=== PATIENT | male | born 1940 | race Asian ===

== ENCOUNTER 2025-01-25 07:51 | Inpatient (IN) | payer MEDICARE, OTHER ==
[~2025-01-25] VITALS: Ht 160 cm; Wt 54.4 kg
[2025-01-25 08:21] LABS: PLATELET COUNT (AUTO) 117 K/uL (152-348); RED BLOOD CELL COUNT(AUTO) 2.72 MIL/uL (4.06-5.63); RED CELL DISTRIBUTION WIDTH 15.3 % (12.1-16.2); WHITE BLOOD COUNT (AUTO) 4.7 K/uL (3.6-10.2)
[2025-01-25 08:31] LABS: CREATININE 0.6 mg/dL (0.6-1.3); SODIUM SERUM 147 mmol/L (136-145); UREA NITROGEN, BLOOD 21 mg/dL (7-18)
[2025-01-25 08:36] LABS: ASPARTATE AMINOTRANSFERASE 6 U/L (15-37); TOTAL PROTEIN, SERUM 6.9 g/dL (6.4-8.2)
[2025-01-25] MEDS ORDERED: IPRA0.2S48 NEB (08:38)
[2025-01-25] MEDS ORDERED: DOCU100T2 GT (08:38)
[2025-01-25] MEDS ORDERED: EPOE200012 SUBCUT (08:38)
[2025-01-25] MEDS ORDERED: FINA5TAB11 GT (08:38)
[2025-01-25] MEDS ORDERED: FAMO20TA8 GT (08:38)
[2025-01-25] MEDS ORDERED: ATOR20TA GT (08:38)
[2025-01-25] MEDS ORDERED: FERR220S6 GT (08:38)
[2025-01-25] MEDS ORDERED: CHOL500062 GT (08:38)
[2025-01-25] MEDS ORDERED: FOLI1TAB94 GT (08:38)
[2025-01-25] MEDS ORDERED: MAGN400O6 GT (08:38)
[2025-01-25] MEDS ORDERED: CARV3.122 GT (08:38)
[2025-01-25] MEDS ORDERED: DONE10TA44 GT (08:38)
[2025-01-25] MEDS ORDERED: ZINC56.713 TP (08:38)
[2025-01-25] MEDS ORDERED: ESCI10TA GT (08:38)
[2025-01-25] MEDS ORDERED: NA P133E RC (08:38)
[2025-01-25] MEDS ORDERED: SENN8.6T19 GT (08:38)
[2025-01-25] MEDS ORDERED: KETO15CR2 TP (08:38)
[2025-01-25] MEDS ORDERED: GABA100C GT (08:38)
[2025-01-25] MEDS ORDERED: POLY17PO4 GT (08:38)
[2025-01-25] MEDS ORDERED: BISA10SU61 RC (08:38)
[2025-01-25] MEDS ORDERED: [UNRECOGNIZED DRUG - SUPPLY] TP (08:38)
[2025-01-25] MEDS ORDERED: ACET-2030 GT (08:38)
[2025-01-25] MEDS ORDERED: ACET-3117 GT (08:38)
[2025-01-25] MEDS ORDERED: POVI37802 TP (08:40)
[2025-01-25] MEDS ORDERED: ALBU2.5V38 IH (08:40)
[2025-01-25] MEDS ORDERED: ONDANSETRON 4 MG/2 ML VIAL IV PRN (10:45)
[2025-01-25] MEDS ORDERED: ACETAMINOPHEN 325 MG TABLET PO PRN (10:45)
[2025-01-25] MEDS ORDERED: REMEDY ESSENTIAL ZINC PASTE 113 GM TP PRN (10:45)
[2025-01-25] MEDS: IV D5 1/2 NS 1000 ML 1,000 ML IV PRN (16:49)
[2025-01-25] MEDS ORDERED: ACET-73 GT (18:01)
[2025-01-25] MEDS ORDERED: POVI3780 TP (18:03)
[2025-01-25] MEDS ORDERED: TAMS-3 GT (18:07)
[2025-01-25 18:34] VITALS: BP 123/66; TEMP 98.6; O2SAT 100
[2025-01-25 19:50] VITALS: BP 128/55; TEMP 97.5; O2SAT 100
[2025-01-25] MEDS ORDERED: ETOMIDATE 20 MG/10 ML VIAL ONE (21:05)
[2025-01-25] MEDS ORDERED: LIDOCAINE-MPF 2% 5 ML VIAL ONE (21:05)
[2025-01-25 21:41] VITALS: BP 135/66
[2025-01-26 00:31] VITALS: O2SAT 97
[2025-01-26 06:38] LABS: PLATELET COUNT (AUTO) 112 K/uL (152-348); RED BLOOD CELL COUNT(AUTO) 2.76 MIL/uL (4.06-5.63); RED CELL DISTRIBUTION WIDTH 15.1 % (12.1-16.2); WHITE BLOOD COUNT (AUTO) 5.6 K/uL (3.6-10.2)
[2025-01-26 06:45] VITALS: BP 132/63; TEMP 97.7; O2SAT 100
[2025-01-26 06:52] LABS: CREATININE 0.4 mg/dL (0.6-1.3); SODIUM SERUM 146 mmol/L (136-145); UREA NITROGEN, BLOOD 18 mg/dL (7-18)
[2025-01-26] MEDS: POTASSIUM CHLORIDE 50 ML IV SCH (10:23)
[2025-01-26 10:56] VITALS: BP 128/59; TEMP 98.6; O2SAT 100
[2025-01-26] MEDS ORDERED: OSMOLITE 1.2 CAL 1,000 ML LIQUID GT SCH (13:45)
[2025-01-26] MEDS ORDERED: OSMOLITE 1.2 CAL 1,000 ML LIQUID GT PRN (13:46)
[2025-01-26] MEDS: OSMOLITE 1.2 CAL 1,000 ML LIQUID GT PRN (13:50)
[2025-01-26 15:02] VITALS: BP 129/65; TEMP 98.1; O2SAT 100
[2025-01-26 19:25] VITALS: BP 141/62; TEMP 97.8; O2SAT 100
[2025-01-27 06:44] LABS: PLATELET COUNT (AUTO) 94 K/uL (152-348); RED BLOOD CELL COUNT(AUTO) 2.78 MIL/uL (4.06-5.63); RED CELL DISTRIBUTION WIDTH 14.8 % (12.1-16.2); WHITE BLOOD COUNT (AUTO) 5.6 K/uL (3.6-10.2)
[2025-01-27 06:53] VITALS: BP 133/69; TEMP 97.5; O2SAT 100
[2025-01-27 07:14] LABS: CREATININE 0.4 mg/dL (0.6-1.3); SODIUM SERUM 141 mmol/L (136-145); UREA NITROGEN, BLOOD 12 mg/dL (7-18)
[2025-01-27 12:07] VITALS: BP 137/62; TEMP 98.5; O2SAT 100
[2025-01-27 19:30] VITALS: BP 125/60; TEMP 98; O2SAT 100
[2025-01-27 22:00] VITALS: O2SAT 97
[2025-01-28 05:46] VITALS: TEMP 99.1; O2SAT 98
[2025-01-28] MEDS ORDERED: ACET-2154 GT (10:05)
[2025-01-28 10:57] VITALS: BP 139/82; TEMP 98.4; O2SAT 96
[2025-01-28] MEDS ORDERED: DOCU50LI GT (11:10)
[2025-01-28] MEDS ORDERED: CHOL-35 GT (11:13)
== END 2025-01-28 16:00 | DRG 393 ==
LOC: ER 07:51 → MEDSURG3 17:37
PROVIDERS: ADMIT Internal Medicine; ATTEND Internal Medicine
PROC: 0DH64UZ Insertion of Feeding Device into Stomach, Percutaneous Endoscopic Approach (ICD-10-PCS; principal; 2025-01-25 22:30)
PROC: 3E0G76Z Introduction of Nutritional Substance into Upper GI, Via Natural or Artificial Opening (ICD-10-PCS; 2025-01-26)
DX: Z43.1 Encounter for attention to gastrostomy (principal); G93.41 Metabolic encephalopathy; E87.0 Hyperosmolality and hypernatremia; D63.8 Anemia in other chronic diseases classified elsewhere; E86.0 Dehydration; E87.6 Hypokalemia; D69.6 Thrombocytopenia, unspecified; E78.5 Hyperlipidemia, unspecified; Z88.0 Allergy status to penicillin; R13.10 Dysphagia, unspecified; Z98.890 Other specified postprocedural states; G30.9 Alzheimer's disease, unspecified; F02.80 Dementia in other diseases classified elsewhere, unspecified severity, without behavioral disturbance, psychotic disturbance, mood disturbance, and anxiety; I10 Essential (primary) hypertension; K29.70 Gastritis, unspecified, without bleeding; Z79.899 Other long term (current) drug therapy
CPT/HCPCS: 36415; 71045; 83735; 84100; 84484; 85025; 85730; A4606; A4663; A6209; A6213; G0378; J3480; J3490